=== PATIENT | male | born 1960 | race Caucasian/White ===

== ENCOUNTER 2018-09-07 21:16 | Emergency (ER) | payer SELFPAY ==
[~2018-09-07] VITALS: Ht 157.5 cm; Wt 74.8 kg
[2018-09-07 21:21] VITALS: BP 130/90
[2018-09-07] MEDS ORDERED: ACETAMINOPHEN 325 MG TAB PO ONE (21:30)
--- NOTE | 2018-09-07 21:34 | NUR ---
PT AMBULATED TO ER BED 05
--- NOTE | 2018-09-07 21:40 | NUR ---
FIRST CONTACT PATIENT BIB FRIEND C/O LLE SWELLING/ERYTHEMA +WARM X 3 DAYS. PATIENT DENIES ANY RECENT TRAVEL, NO MEDICAL HX, D/T NO VISITATION TO PCP FOR "YEARS" PATIENT STATES HE SWELLING STARTED 3 DAYS AGO WORSENING TODAY. PATIENT STATES +SENSATION. PATIENT GCS 15, AMBULATORY WITH STEADY GAIT. PATIENT DENIES ANY CP/SOB, NO N/V/D. PATIENT ACCOMPANIED BY FRIEND. UPDATED WITH PLAN OF CARE. DR NOLAN MADE AWARE, NO ACUTE DISTRESS NOTED. WILL CONTINUE TO MONITOR
[2018-09-07 22:17] LABS: BASOPHILS % (AUTO) 0.2 % (0.0-2.0); EOSINOPHILS % (AUTO) 0.4 % (0.0-4.0); HEMATOCRIT 37.2 % (36-52); HEMOGLOBIN 12.5 g/dL (12.0-18.0); LYMPHOCYTES % (AUTO) 9.9 % (20.5-51.1); MEAN CORPUSCULAR HEMOGLOBIN 31 pg (27-31); MEAN CORPUSCULAR HGB CONC 34 g/dL (33-37); MEAN CORPUSCULAR VOLUME 92.4 fL (80-94); MONOCYTES # (AUTO) 1.6 K/uL (0.8-1.0); NEUTROPHILS # (AUTO) 7.5 K/uL (1.8-7.7); PLATELET COUNT (AUTO) 178 K/uL (140-450); RED BLOOD CELL COUNT(AUTO) 4.02 MIL/uL (4.20-6.10); RED CELL DISTRIBUTION WIDTH 13.7 % (11.6-13.7); WHITE BLOOD COUNT (AUTO) 10.1 K/uL (4.8-10.8)
[2018-09-07] MEDS ORDERED: VANCOMYCIN 1,000 MG in DEXTROSE 5% 250 ML IV ONE (22:30)
[2018-09-07] MEDS ORDERED: PIPERACILLIN/TAZOBACTAM 3.375 GM in DEXTROSE 5% 50 ML IV ONE (22:30)
[2018-09-07] MEDS ORDERED: NACL 0.9% 2,000 ML IV ONE (22:30)
[2018-09-07 22:41] LABS: ANION GAP 14.7 (8-16); CARBON DIOXIDE 25.5 mmol/L (21-32); CREATININE 0.9 mg/dL (0.7-1.3); POTASSIUM 3.2 mmol/L (3.5-5.1)
[2018-09-07 22:44] LABS: MONOCYTES % (AUTO) 15.5 % (1.7-9.3)
[2018-09-07] MEDS ORDERED: PIPERACILLIN/TAZOBACTAM 3.375 GM VIAL IV ONE (22:50)
[2018-09-07] MEDS ORDERED: POTASSIUM CHLORIDE 10 MEQ TABER PO ONE (22:50)
[2018-09-07] MEDS ORDERED: VANCOMYCIN 1,000 MG VIAL ONE (22:50)
[2018-09-07 22:55] LABS: ALBUMIN 3.1 g/dL (3.4-5.0); TOTAL BILIRUBIN 0.9 mg/dL (0.0-1.0)
[2018-09-08 00:25] VITALS: BP 123/72
--- NOTE | 2018-09-08 00:25 | NUR ---
Patient discharged with v/s stable. Written and verbal after care instructions given and explained. Patient alert, oriented and verbalized understanding of instructions. Ambulatory with steady gait. All questions addressed prior to discharge. ID band removed. Patient advised to follow up with PMD. Rx of KEFLEX AND BACTRIM given. Patient educated on indication of medication including possible reaction and side effects. Opportunity to ask questions provided and answered.
--- NOTE | 2018-09-11 04:59 | NUR ---
Late entry. Confirmed with RN that 2000ml 0.9 NS IV bolus completed at 0020.
== END 2018-09-08 00:25 | disposition home or self-care (01) ==
LOC: MED 21:16
DX: L03.116 Cellulitis of left lower limb (principal); E87.6 Hypokalemia; F17.200 Nicotine dependence, unspecified, uncomplicated
CPT/HCPCS: 36415; 80053; 83605; 85025; 87040; 93971; 96365; 96367; 99284; J2543; J3370; Q0092

== ENCOUNTER 2018-12-19 10:14 | Inpatient (IN) | payer MEDICAID ==
[~2018-12-19] VITALS: Ht 162.6 cm; Wt 74.8 kg
[2018-12-19 10:24] VITALS: BP 123/87
[2018-12-19] MEDS ORDERED: NACL 0.9% 1,000 ML IV SCH (10:27)
[2018-12-19] MEDS ORDERED: PIPERACILLIN/TAZOBACTAM 3.375 GM in DEXT 5% MINI-BAG PLUS 50 ML IV ONE (10:30)
--- NOTE | 2018-12-19 10:30 | NUR ---
58 YO BIBA FOR C/O L LEG BUG BITE. PT STATES HE HAD BUG BITE X 2 WEEKS AGO. PT DENIES FEVER/CHILLS. L LEG OPEN WOUND PRESENT WITH DRY KERLIX WRAPPED. WOUND 1.5 X1 CM WITH TUNNELING 10 OCLOCK TO 3 OCLOCK, YELLOW/RED DRAINAGE PRESENT; MAGGOTS IN WOUND PRESENT. WOUND CX TAKEN. L FOOT MOTTLED. SENSATION INTACT. SKIN MOTTLED TO LEFT FOOT. NSR 70-80S, +1-2 EDEMA TO BILATERAL LEGS PRESENT. S1 S2. +2 RADIAL PULSES. PULSES TO DOPPLER ON AFFECTED LEG, PALPABLE ON R LEG. BALDEMAR LOCKED IN LOWEST POSITION. HX: DENIES AX: DENIES
[2018-12-19] MEDS ORDERED: PIPERACILLIN/TAZOBACTAM 3.375 GM VIAL IV ONE (10:44)
--- NOTE | 2018-12-19 11:05 | NUR ---
IV R AC 18 G STARTED, LABS DRAWN. BLOOD CULTURE #1 @ 1045, BLOOD CULTURE #2 @ 1100.
--- NOTE | 2018-12-19 11:05 | NUR ---
WOUND CX TAKEN, SENT WITH FRIED CAKE MAKER @ BEDSIDE.
--- NOTE | 2018-12-19 11:23 | NUR ---
Note undone in EDM - 12/19/18 at 1124 by ANTWAN 58 YO BIBA FOR C/O L LEG BUG BITE. PT STATES HE HAD BUG BITE X 2 WEEKS AGO. PT DENIES FEVER/CHILLS. L LEG OPEN WOUND PRESENT WITH DRY KERLIX WRAPPED. WOUND 1.5 X1 CM WITH TUNNELING 10 OCLOCK TO 3 OCLOCK, YELLOW/RED DRAINAGE PRESENT; MAGGOTS IN WOUND PRESENT. WOUND CX TAKEN. L FOOT MOTTLED. SENSATION INTACT. SKIN MOTTLED TO LEFT FOOT. NSR 70-80S, +1-2 EDEMA TO BILATERAL LEGS PRESENT. S1 S2. +2 RADIAL PULSES. PULSES TO DOPPLER ON AFFECTED LEG, PALPABLE ON R LEG. BALDEMAR LOCKED IN LOWEST POSITION. HX: DENIES AX: DENIES
--- NOTE | 2018-12-19 11:25 | NUR ---
PT HAS EYES CLOSED; DENIES PAIN @ THIS TIME. VSS.
[2018-12-19 11:36] LABS: BASOPHILS % (AUTO) 0.5 % (0.0-2.0); EOSINOPHILS # (AUTO) 0.2 K/uL (0-0.4); EOSINOPHILS % (AUTO) 2.8 % (0.0-4.0); HEMATOCRIT 39.1 % (36-52); HEMOGLOBIN 12.8 g/dL (12.0-18.0); LYMPHOCYTES # (AUTO) 1.2 K/uL (2.0-11.5); LYMPHOCYTES % (AUTO) 20.3 % (20.5-51.1); MEAN CORPUSCULAR HEMOGLOBIN 31 pg (27-31); MEAN CORPUSCULAR HGB CONC 33 g/dL (33-37); MEAN CORPUSCULAR VOLUME 93.8 fL (80-94); MONOCYTES # (AUTO) 0.6 K/uL (0.8-1.0); MONOCYTES % (AUTO) 9.6 % (1.7-9.3); NEUTROPHILS # (AUTO) 4.1 K/uL (1.8-7.7); NEUTROPHILS % (AUTO) 66.8 % (42.2-75.2); PLATELET COUNT (AUTO) 247 K/uL (140-450); RED BLOOD CELL COUNT(AUTO) 4.17 MIL/uL (4.20-6.10); RED CELL DISTRIBUTION WIDTH 13.7 % (11.6-13.7); WHITE BLOOD COUNT (AUTO) 6.1 K/uL (4.8-10.8)
[2018-12-19 11:39] LABS: ANION GAP 10.2 (8-16); CARBON DIOXIDE 28.1 mmol/L (21-32); CREATININE 0.7 mg/dL (0.7-1.3); POTASSIUM 3.3 mmol/L (3.5-5.1)
[2018-12-19 11:45] LABS: ALBUMIN 3.2 g/dL (3.4-5.0); TOTAL BILIRUBIN 0.4 mg/dL (0.0-1.0)
[2018-12-19] MEDS ORDERED: ACETAMINOPHEN 325 MG TAB PO PRN (12:00)
[2018-12-19] MEDS ORDERED: LORazepam 2 MG/ML VIAL IM/IVP PRN (12:00)
[2018-12-19] MEDS ORDERED: ONDANSETRON 4 MG/2 ML VIAL IM/IVP PRN (12:00)
[2018-12-19] MEDS ORDERED: DOCUSATE SODIUM 100 MG GELCAP PO PRN (12:00)
[2018-12-19] MEDS ORDERED: HYDROcodone/APAP 5/325 MG 1 TAB TAB PO PRN (12:00)
[2018-12-19] MEDS ORDERED: MORPHINE SULFATE 2 MG/ML SYR IVP PRN (12:00)
--- NOTE | 2018-12-19 12:05 | NUR ---
DR DILL @ BEDSIDE
[2018-12-19] MEDS: NACL 0.9% 1,000 ML IV SCH (13:25)
[2018-12-19] MEDS ORDERED: MAGNESIUM OXIDE 400 MG TAB PO SCH (13:30)
--- NOTE | 2018-12-19 14:00 | NUR ---
PT REQUESTED TO VOID FOR URINE SAMPLE; PT STATED HE DID NOT HAVE THE URGE TO GO. ERMD MADE AWARE.
[2018-12-19 14:20] LABS: AMYLASE 73 U/L (25-115); LIPASE 221 U/L (73-393); MAGNESIUM 1.9 mg/dL (1.8-2.4); PHOSPHORUS 2.5 mg/dL (2.5-4.9); THYROID STIMULATING HORMONE 2.42 uIU/mL (0.34-3.74)
[2018-12-19 14:35] VITALS: BP 137/86
--- NOTE | 2018-12-19 14:35 | NUR ---
PATIENT ARRIVED FROM ER VIA GURNEY. ABLE TO AMBULATE WITH ASSIST TO [facility] BED D/T LLE WOUND. AAOX2, CALM, COOPERATIVE, SKIN COLOR APPROPRIATE TO ETHNICITY, WARM TO TOUCH. HAS LLE WOUND, DRESSING DRY AND INTACT AT THIS TIME. IV SITE INTACT, PATENT, AND ON SALINE LOCK. REVIEWED PLAN OF CARE WITH PATIENT. PATIENT VERBALIZED UNDERSTANDING. ORIENTED PATIENT TO ROOM AND CALL LIGHT. REVIEWED PLAN OF CARE WITH PATIENT. PATIENT VERBALIZED UNDERSTANDING. SAFETY MEASURES IN PLACE, CALL LIGHT WITHIN REACH. WILL CONTINUE TO MONITOR.
[2018-12-19] MEDS ORDERED: POTASSIUM CHLORIDE 10 MEQ TABER PO SCH (15:06)
[2018-12-19] MEDS ORDERED: VANCOMYCIN PER PHARMACY MC PRN (15:15)
--- NOTE | 2018-12-19 16:00 | NUR ---
EDUCATION RESEARCH ANALYST AT BEDSIDE CHANGING LLE WOUND. WILL CONTINUE TO MONITOR.
[2018-12-19] MEDS: VANCOMYCIN 1,000 MG in DEXTROSE 5% 250 ML IV SCH (17:35)
--- NOTE | 2018-12-19 17:47 | NUR ---
PATIENT LYING DOWN IN BED SLEEPING, AROUSABLE BY VOICE. NO DISTRESS NOTED. DENIES ANY PAIN. SCHEDULED MEDICATIONS DUE GIVEN. WILL CONTINUE TO MONITOR.
--- NOTE | 2018-12-19 19:40 | NUR ---
GAVE REPORT TO JOB ANALYST NURSE FOR CONTINUITY OF CARE. PATIENT IN STABLE CONDITION.
--- NOTE | 2018-12-19 19:45 | NUR ---
RECEIVED FROM AM RN IN BED SLEEPING. ABLE TO WAKE UP- WHEN TOUCHED. DROWSY. DX. OF LEFT LEFT CELLULITIS/ABCESS WITH MAGGOTS. DRESSING INTACT. NO BLEEDING. TREATMENT DONE BY RN AM AND SEEN BY SCREEN MAKING TECHNICIAN. NEEDS WILL BE ANTICIPATED AND WILL BE MET. AFEBRILE.
--- NOTE | 2018-12-19 20:58 | NUR ---
PT. SLEEPING BUT WAKES UP EASILY WHEN TOUCHED AND AWAKENED. RE=ORIENTED TO ROOM AND CALL LIGHT. ENCOURAGED TO CALL FOR ANY HELP HE MAY NEED. WITH NS INFUSING WELL. NO INFILTRATION NOTED.
--- NOTE | 2018-12-20 00:06 | NUR ---
PT. SLEEPING. VITAL SIGNS TAKEN WITH CLOSED EYES. NO COMPLAINTS OF PAIN DONE. NO SOB. NO RESTLESSNESS NOTED. DRESSING TO RIGHT NOLAN INTACT AND DRY. CALL LIGHT PLACED BESIDE HIM FOR EASY ACCESS. REMINDED OF CALL LIGHT BESIDE HIM. NODDED HEAD FOR YES.
[2018-12-20 00:21] VITALS: BP_SYST 129; BP_SYST 132; BP_DIAS 84; BP_DIAS 86
--- NOTE | 2018-12-20 01:44 | NUR ---
PT. REFUSED TO HAVE DRESSING CHANGED AND FOOT DIPPED IN WARM WATER WITH BETADINE ORDERED. EXPLAINED TO HIM BY CHARGE NURSE [place] IN [place] AND EXPLAINED IT TO HIM IN AMHARIC TOO. PT. REFUSED TO GET UP TO STAND. INFORMED CHARGE NURSE NAM . AWARE.
--- NOTE | 2018-12-20 03:00 | NUR ---
SLEEPING . REFUSING TO PAR TAKE WITH PERSONAL HYGIENE CARE. OPENS EYES AND CLOSES IT BACK. VITAL SIGNS WITH IN NORMAL LIMITS.
[2018-12-20] MEDS: VANCOMYCIN 1,000 MG in DEXTROSE 5% 250 ML IV SCH (03:51)
[2018-12-20] MEDS: NACL 0.9% 1,000 ML IV SCH ×2 (03:58→12:30)
--- NOTE | 2018-12-20 05:10 | NUR ---
PT. SLEEPING WELL. TURNS SELF . DRESSING TO LEFT LEG INTACT AND NO BLEEDING. PT. REFUSING AM PERSONAL CARE. EXPLAINED REASON. REFUSING MOST OF CARE.
--- NOTE | 2018-12-20 07:01 | NUR ---
MEDICAL STUDENT /PODIATRY IN HERE AND DISCARDED DRESSING . KEPT IT OPEN TO AIR. PT. PER CNAS SAW HIM WALK TO RESTROOM BY HIMSELF WITH IVF POLE . REFUSE TO TALK TO CARE GIVERS. PT. PREFERS TO SLEEP. WILL ENDORSE TO AM RN FOR CONTINUITY OF CARE.
--- NOTE | 2018-12-20 07:20 | NUR ---
RECEIVED REPORT FROM PREANALYTICS TEAM LEAD NURSE. PT IS AROUSABLE TO NAME, ORIENTED X4, NO C/O PAIN AT THIS TIME. IV ON RT AC 18 GA RUNNING IVF PER ORDER. RESPIRATIONS EVEN AND UNLABORED ON RA. ABD SOFT, ACTIVE BS. NOTED DRESSING ON RT FOOT, CLEAN DRY AND INTACT. SAFETY MEASURES IN PLACE, CALL LIGHT WITHIN REACH. REVIEWED POC WITH PT, PT VERBALIZED UNDERSTANDING. Addendum: 12/20/18 at 1135 by Aleena Bahena RN CLARIFICATION LATE ENTRY: 12/20/18 0721 DRESSING ON LT FOOT, CLEAN, DRY AND INTACT. DRYNESS NOTED TO BILATERAL FEET.
--- NOTE | 2018-12-20 07:25 | NUR ---
RECEIVED UPDATE FROM BURN OUT SCARFING OPERATOR, PER PHYSICIAN DRESSING CHANGE DONE TODAY, NEXT DRESSING CHANGED TO BE DONE TOMORROW AM.
[2018-12-20 07:50] LABS: BASOPHILS % (AUTO) 0.2 % (0.0-2.0); EOSINOPHILS # (AUTO) 0.1 K/uL (0-0.4); EOSINOPHILS % (AUTO) 0.9 % (0.0-4.0); HEMATOCRIT 41.2 % (36-52); HEMOGLOBIN 13.7 g/dL (12.0-18.0); LYMPHOCYTES % (AUTO) 12.6 % (20.5-51.1); MEAN CORPUSCULAR HEMOGLOBIN 31 pg (27-31); MEAN CORPUSCULAR HGB CONC 33 g/dL (33-37); MEAN CORPUSCULAR VOLUME 93.4 fL (80-94); MONOCYTES # (AUTO) 0.6 K/uL (0.8-1.0); MONOCYTES % (AUTO) 7.6 % (1.7-9.3); NEUTROPHILS % (AUTO) 78.7 % (42.2-75.2); PLATELET COUNT (AUTO) 231 K/uL (140-450); RED BLOOD CELL COUNT(AUTO) 4.41 MIL/uL (4.20-6.10); RED CELL DISTRIBUTION WIDTH 13.8 % (11.6-13.7); WHITE BLOOD COUNT (AUTO) 7.6 K/uL (4.8-10.8)
[2018-12-20 08:00] VITALS: BP 133/79
--- NOTE | 2018-12-20 08:20 | NUR ---
PATIENT HAS BEEN SCREENED AND CATEGORIZED HIGH NUTRITION RISK. PATIENT WILL BE SEEN WITHIN 1-2 DAYS OF ADMISSION. 12/20/[address]
[2018-12-20] MEDS: LACTOBACILLUS RHAMNOSUS GG 1 EACH CAP PO SCH (09:37)
--- NOTE | 2018-12-20 09:39 | NUR ---
ADMINISTERED LACTOBACILLUS AND HEPARIN PER ORDER, PT VERBALIZES UNDERSTANDING OF INDICATIONS AND POTENTIAL SIDE EFFECTS. PT IS AWARE TO NOTIFY NURSE WHEN HE VOIDS.
--- NOTE | 2018-12-20 10:00 | NUR ---
COLLECTED URINE SPECIMEN AND GIVEN TO LAB.
[2018-12-20 10:08] LABS: CARBON DIOXIDE 27.5 mmol/L (21-32); CREATININE 0.8 mg/dL (0.7-1.3); POTASSIUM 3.5 mmol/L (3.5-5.1)
[2018-12-20] MEDS ORDERED: HYDROmorphone PFS 2 MG/ML SYR IVP PRN (10:20)
[2018-12-20 10:29] LABS: CHOL/HDL RATIO 2.4 (1-4.5); MAGNESIUM 1.9 mg/dL (1.8-2.4); PHOSPHORUS 2.1 mg/dL (2.5-4.9)
--- NOTE | 2018-12-20 10:53 | NUR ---
PT. EXAMED AND TREATED BY DR. WILLIAMSON TO LEFT LOWER LEG. SPOKE TO PRIMARY RN TODAY'S TREATMENT DONE BY DR. WILLIAMSON AND WOULD LIKE TO HAVE DRESSING CHANGE DAILY. SPOKE TO DR. DILL WOUND CARE ORDER DISCUSSED AND OKAY TO HAVE PRIMARY RN TO DO DRESSING CHANGE STARTING TOMORROW. PRIMARY RN NOTIFIED.PER DR. KABA ORDER: Please change dressings daily. Patient previously had maggots in wound and surrounding cellulitis, improving. Please flush with saline and betadine, and dress with gauze, kerlix, and oriana wrap on left leg.
[2018-12-20 11:31] LABS: BARBITURATE, URINE NEG. ng/ml (NEG <=200); BENZODIAZEPINE, URINE NEG. ng/mL (NEG <=200); CANNABINOID, URINE NEG. ng/mL (NEG <=50); COCAINE, URINE NEG. ng/mL (NEG <=300); OPIATE, URINE NEG. ng/mL (NEG <=2000); PHENCYCLIDINE SCREEN,URINE NEG. ng/mL (NEG <=25)
--- NOTE | 2018-12-20 11:35 | NUR ---
PT RESTING IN BED IN SUPINE POSITION. RESPIRATIONS EVEN AND UNLABORED ON RA.
[2018-12-20] MEDS ORDERED: SODIUM PHOS / POTASSIUM PHOS 1 PKT PDR PO SCH (11:40)
--- NOTE | 2018-12-20 12:00 | NUR ---
PT GIVEN CLEAN GOWN, PT REFUSED FOR BED LINENS TO BE CHANGED AT THIS TIME.
--- NOTE | 2018-12-20 13:00 | NUR ---
PT'S DRESSING ON LT FOOT CLEAN, DRY AND INTACT. PT HAS NO C/O PAIN AT THIS TIME.
--- NOTE | 2018-12-20 13:10 | NUR ---
12/20/18 RD INITIAL ASSESSMENT COMPLETED PLEASE REFER TO NUTRITION ASSESSMENT UNDER CARE ACTIVITY FOR ESTIMATED NUTRITIONAL NEEDS. 1. CONTINUE REGULAR DIET TOLERATED 2. RECOMMEND VITAMIN C 200 MG/DAY 3. RD TO FOLLOW-UP 3-5 DAYS, MODERATE RISK CATRINA ALEJANDRA, RD
[2018-12-20 14:43] LABS: APPEARANCE,URINE CLEAR (CLEAR); BILIRUBIN,URINE NEGATIVE (NEGATIVE); BLOOD, URINE TRACE-I (NEGATIVE); COLOR,URINE YELLOW (YELLOW); LEUKOCYTE ESTERASE ,URINE NEGATIVE (NEGATIVE); NITRITE, URINE NEGATIVE (NEGATIVE); UGLUCOSE NEGATIVE (NEGATIVE)
[2018-12-20 14:46] LABS: RBC,URINE 0-5 /HPF (0-5); WBC,URINE NONE SEEN /HPF (0-5); YEAST,URINE None Seen /HPF (None Seen)
--- NOTE | 2018-12-20 15:20 | NUR ---
PT RESTING IN BED, RESPIRATIONS EVEN AND UNLABORED ON RA.
[2018-12-20 16:00] VITALS: BP 128/86
--- NOTE | 2018-12-20 16:15 | NUR ---
PT GIVEN COOLING MEASURES FOR ORAL TEMP 99.0, COOL WASHCLOTH TO FOREHEAD AND ICE PACKS TO UNDERARMS. WILL REASSESS TEMPERATURE AT A LATER TIME.
[2018-12-20] MEDS ORDERED: VANCOMYCIN 1,250 MG in DEXTROSE 5% 250 ML IV SCH (16:30)
--- NOTE | 2018-12-20 17:15 | NUR ---
ORAL TEMPERATURE AT 98.4, CONTINUED TO GIVE COOLING MEASURES AT THIS TIME.
--- NOTE | 2018-12-20 18:30 | NUR ---
GIVEN SANDWICH IN ADDITION TO DINNER. PT RESTING IN SUPINE POSITION. NO SIGNS OF DISTRESS NOTED.
--- NOTE | 2018-12-20 19:20 | NUR ---
ENDORSED PT TO COPPING MACHINE OPERATOR NURSE. PT HAS NO SIGNS OF DISTRESS AT THIS TIME.
--- NOTE | 2018-12-20 19:30 | NUR ---
PT. SLEEPING. WOKE UP WHEN TOUCHED. REFUSED TO TALK. WENT BACK TO SLEEP. CALL LIGHT AT BEDSIDE AND BED ALARM ON. DRESSING TO LEFT NOLAN IN PLACE AND DRY. AFEBRILE. IVF INTACT AND INFUSING WELL. NO S/S OF INFILTRATION.
--- NOTE | 2018-12-20 22:10 | NUR ---
PT. SLEEPING. KEPT COMFORTABLE. ABLE TO NOD HEAD WHEN ASKED SOMETHING. CALL LIGHT WITH IN REACH. BED ALARM ON.
[2018-12-21 00:04] VITALS: BP_SYST 126; BP_SYST 148; BP_DIAS 66; BP_DIAS 84
--- NOTE | 2018-12-21 00:49 | NUR ---
SLEEPING. REFUSED TO BE DISTURBED. VITAL SIGN TAKEN BUT TRIED TO WAG MY HAND AWAY. WENT BACK TO SLEEP AFTER.
[2018-12-21] MEDS: VANCOMYCIN 1,250 MG in DEXTROSE 5% 250 ML IV SCH ×2 (04:34→16:49)
--- NOTE | 2018-12-21 04:34 | NUR ---
PT. WOKE UP AT THIS TIME. WET HIMSELF AND BEDDING WITH URINE. CHANGED BY CLASSIFIED AD TAKER. PT. ABLE TO UNDERSTAND AND VERBALIZE SIMPLE NEEDS IN BHUTANESE. ENCOURAGED TO GO BACKK TO SLEEP RT STILL SLEEP TIME. WENT BACK TO SLEEP AND BACK TO BED WITH OUT PROBLEM.
--- NOTE | 2018-12-21 07:23 | NUR ---
PT. RESPONSIVE VERBALLY AND AND MORE AWAKE. SPEAKS SOANISH . ENDORSED TO AM RN FOR CONTINUITY OF CARE. NO DOLOR COMPLAINT THIS SHIFT.
--- NOTE | 2018-12-21 07:25 | NUR ---
RECEIVED BEDSIDE REPORT FROM PIT CRANE OPERATOR NURSE FOR CONTINUITY OF CARE. PATIENT IS RESTING ON BED AT THIS TIME. AROUSABLE TO VOICE. PATIENT IS AAOX4, SPEAK KYRGYZ AND ABLE TO SPEAK SOME SLOVENIAN. RESPIRATION EVEN AND UNLABORED ON RA. NO SIGNS OF DISTRESS NOTED. IV PATENT AND INTACT, INFUSING PER MD ORDER. PATIENT IS CONTINENT AND AMBULATE WITH ASSIST. CELLULITIS ON R LEG NOTED, CS ASSOCIATE,OTHERWISE SKIN INTACT AND CLEAN. DISCUSSED PLAN OF CARE WITH PATIENT AND PATIENT VERBALIZED OK. SAFETY MEASURES IN PLACE. BED IN LOW POSITION AND CALL LIGHT WITHIN REACH. FALL RISK PROTOCOL IN PLACE AND BED ALARM ACTIVATED. INSTRUCTED PATIENT TO USE THE CALL LIGHT FOR ANY ASSISTANCE AND PATIENT WAS AWARE.
[2018-12-21 08:00] VITALS: BP 131/58
[2018-12-21] MEDS: LACTOBACILLUS RHAMNOSUS GG 1 EACH CAP PO SCH (09:13)
--- NOTE | 2018-12-21 09:14 | NUR ---
ADMINISTERED MEDS PER MD ORDER, PATIENT TOLERATED WELL. MEDS EDUCATION PROVIDED TO PATIENT AND PATIETN VERBALIZED UNDERSTANDING. PATIENT IS AWAKE AND EATING OATMEAL AT THIS TIME. NO SIGNS OF DISTRESS NOTED. SAFETY MEASURES IN PLACE. BED IN LOW POSITION AND CALL LIGHT WITHIN REACH. BED ALARM ACTIVATED. INSTRUCTED PATIENT TO USE THE CALL LIGHT FOR ANY ASSISTANCE AND PATIENT WAS AWARE.
--- NOTE | 2018-12-21 11:32 | NUR ---
PATIENT IS RESTING ON BED AT THIS TIME. DENIED PAIN, DIZZINESS AND SOB. NO SIGNS OF DISTRESS NOTED. SAFETY MEASURES IN PLACE. BED IN LOW POSITION AND CALL LIGHT WITHIN REACH. INSTRUCTED PATIENT TO USE THE CALL LIGHT FOR ANY ASSISTANCE AND PATIENT WAS AWARE. BED ALARM ACTIVATED.
[2018-12-21] MEDS ORDERED: SODIUM PHOS / POTASSIUM PHOS 1 PKT PDR PO SCH (12:45)
--- NOTE | 2018-12-21 12:58 | NUR ---
ADMINISTERED MED PER MD ORDER, PATIENT TOLERATED WELL. MED EDUCATION PROVIDED TO PATIENT AND PATIENT VERBALIZED UNDERSTANDING. PATIENT IS EATING LUNCH AT THIS TIME. DENIED PAIN, SOB AND DIZZINESS. NO SIGNS OF DISTRESS NOTED. SAFETY MEASURES IN PLACE. BED ALARM ACTIVATED.
[2018-12-21] MEDS: GAUZE TP SCH (13:03)
--- NOTE | 2018-12-21 13:47 | NUR ---
PERFORMED WOUND CARE, CLEANSED WITH SALINE AND BETADINE, USED KERLIX TO SECURE AND WRAP AROUND LEFT LEG. PATIENT TOLERATED WELL. DENIED PAIN. WOUND CARE EDUCATION PROVIDED TO PATIENT AND PATIENT VERBALIZED OK. PATIENT IS RESTING ON BED AT THIS TIME. NO SIGNS OF DISTRESS NOTED. SAFETY MEASURES IN PLACE. BED IN LOW POSITION AND CALL LIGHT WITHIN REACH. BED ALARM ACTIVATED. INSTRUCTED PATIENT TO USE THE CALL LIGHT FOR ANY ASSISTANCE AND PATIENT WAS AWARE.
[2018-12-21] MEDS: NACL 0.9% 1,000 ML IV SCH (14:07)
[2018-12-21 16:00] VITALS: BP 119/79
--- NOTE | 2018-12-21 16:49 | NUR ---
ADMINISTERED MED VIA IVPB PER MD ORDER, MED EDUCATION PROVIDED TO PATIENT AND PATIENT VERBALIZED UNDERSTANDING. PATIENT AWAKE AND WATCHING TV ON BED AT THIS TIME. NO SIGNS OF DISTRESS NOTES. SAFETY MEASURES IN PLACE. BED IN LOW POSITION AND CALL LIGHT WITHIN REACH. FALL RISK PROTOCOL IN PLACE AND BED ALARM ACTIVATED. INSTRUCTED PATIENT TO USE THE CALL LIGHT FOR ANY ASSISTANCE AND PATIENT WAS AWARE.
--- NOTE | 2018-12-21 19:16 | NUR ---
ENDORSED PATIENT AT BEDSIDE TO POLICY ISSUE CLERK NURSE FOR CONTINUITY OF CARE. PATIENT AWAKE AND RESTING ON BED. NO SIGNS OF DISTRESS NOTED. SAFETY MEASURES IN PLACE. BED IN LOW POSITION AND CALL LIGHT WITHIN REACH. FALL RISK PROTOCOL IN PLACE AND BED ALARM ACTIVATED.
--- NOTE | 2018-12-21 19:18 | NUR ---
REPORT RECEIVED FROM AM NURSE AT BEDSIDE. PT IN STABLE CONDITION. AAOX4. INTRODUCED SELF TO PT. BOARD UPDATED. NO COMPLAINTS OF PAIN. NO SOB. AFEBRILE. PT IS ON BED REST BUT IS AMBULATORY. IV SITE R AC 18G RUNNING NS@60ML/HR PATENT AND INTACT. SKIN WARM, DRY, AND NOT INTACT DUE TO WOUNDS OF THE LOWER EXTREMITIES. BED LOCKED IN LOW POSITION. CALL SCHUSTER WITHIN REACH. SAFETY PRECAUTION IN PLACE. ALL NEEDS MET AT THIS TIME.
--- NOTE | 2018-12-21 20:45 | NUR ---
HEPARIN GIVEN SUBQ. PT TOLERATED WELL.
--- NOTE | 2018-12-21 21:45 | NUR ---
NEW IV SITE INSERTED R FA 20G. 1 ATTEMPT. OTHER IV REMOVED. CANNULA INTACT.
--- NOTE | 2018-12-21 23:45 | NUR ---
PT SLEEPING COMFORTABLY BUT AROUSABLE. NO S/S OF DISTRESS NOTED. NO COMPLAINTS OF PAIN. NO SOB. AFEBRILE. WILL CONTINUE TO MONITOR.
[2018-12-22] VITALS: BP 131/80
--- NOTE | 2018-12-22 00:45 | NUR ---
WOUND CARE DONE.
[2018-12-22] MEDS: VANCOMYCIN 1,250 MG in DEXTROSE 5% 250 ML IV SCH ×2 (03:30→14:18)
--- NOTE | 2018-12-22 03:30 | NUR ---
MAGDALENA LUNDY AND RUNNING. PT TOLERATING WELL.
[2018-12-22] MEDS: NACL 0.9% 1,000 ML IV SCH (04:05)
[2018-12-22 06:05] LABS: BASOPHILS % (AUTO) 0.3 % (0.0-2.0); EOSINOPHILS # (AUTO) 0.1 K/uL (0-0.4); EOSINOPHILS % (AUTO) 1.6 % (0.0-4.0); HEMATOCRIT 37.2 % (36-52); HEMOGLOBIN 12.5 g/dL (12.0-18.0); LYMPHOCYTES # (AUTO) 1.3 K/uL (2.0-11.5); MEAN CORPUSCULAR HEMOGLOBIN 31 pg (27-31); MEAN CORPUSCULAR HGB CONC 34 g/dL (33-37); MEAN CORPUSCULAR VOLUME 93.3 fL (80-94); MONOCYTES # (AUTO) 0.9 K/uL (0.8-1.0); MONOCYTES % (AUTO) 11.9 % (1.7-9.3); NEUTROPHILS # (AUTO) 5.1 K/uL (1.8-7.7); NEUTROPHILS % (AUTO) 68.2 % (42.2-75.2); PLATELET COUNT (AUTO) 236 K/uL (140-450); RED BLOOD CELL COUNT(AUTO) 3.99 MIL/uL (4.20-6.10); RED CELL DISTRIBUTION WIDTH 13.6 % (11.6-13.7); WHITE BLOOD COUNT (AUTO) 7.5 K/uL (4.8-10.8)
--- NOTE | 2018-12-22 06:20 | NUR ---
PT SLEEPING COMFORTABLY BUT AROUSABLE. PT IN STABLE CONDITION.
[2018-12-22 06:44] LABS: MAGNESIUM 1.7 mg/dL (1.8-2.4); PHOSPHORUS 3.3 mg/dL (2.5-4.9)
[2018-12-22 06:57] LABS: ANION GAP 12.2 (8-16); CARBON DIOXIDE 27.1 mmol/L (21-32); CREATININE 0.7 mg/dL (0.7-1.3); POTASSIUM 3.3 mmol/L (3.5-5.1)
--- NOTE | 2018-12-22 07:15 | NUR ---
RECEIVED BEDSIDE REPORT FROM DATA PROCESSING AUDITOR NURSE FOR CONTINUITY OF CARE. PATIENT IS RESTING ON BED AT THIS TIME. AROUSABLE TO VOICE. PATIENT IS AAOX4, SPEAK ARMENIAN AND ABLE TO SPEAK SOME MALAY. RESPIRATION EVEN AND UNLABORED ON RA. NO SIGNS OF DISTRESS NOTED. IV PATENT AND INTACT, INFUSING PER MD ORDER. PATIENT IS CONTINENT AND AMBULATE WITH ASSIST. CELLULITIS ON R LEG NOTED, DRESSING CLEAN AND DRY,OTHERWISE SKIN INTACT AND CLEAN. DISCUSSED PLAN OF CARE WITH PATIENT AND PATIENT VERBALIZED OK. SAFETY MEASURES IN PLACE. BED IN LOW POSITION AND CALL LIGHT WITHIN REACH. FALL RISK PROTOCOL IN PLACE AND BED ALARM ACTIVATED. INSTRUCTED PATIENT TO USE THE CALL LIGHT FOR ANY ASSISTANCE AND PATIENT WAS AWARE.
[2018-12-22 08:00] VITALS: BP 126/78
[2018-12-22] MEDS ORDERED: POTASSIUM CHLORIDE 10 MEQ TABER PO SCH (08:00)
[2018-12-22] MEDS ORDERED: MAG SULF 2000 MG/WATER PREMIX 50 ML IV SCH (08:00)
[2018-12-22] MEDS: LACTOBACILLUS RHAMNOSUS GG 1 EACH CAP PO SCH (08:29)
--- NOTE | 2018-12-22 08:29 | NUR ---
ADMINISTERED MEDS PER MD ORDER, PATIENT TOLERATED WELL. MEDS EDUCATION PROVIDED TO PATIENT AND PATIENT VERBALIZED UNDERSTANDING. ADMINISTERED MG SULFATE AND K DUR FOR LOW AM LAB MG 1.7L AND POTASSIUM 3.3, MEDS EDUCATION PROVIDED TO PATIENT AND PATIENT WAS AWARE. PATIENT IS AWAKE AND RESTING ON BED AT THIS TIME. NO SIGNS OF DISTRESS NOTED. SAFETY MEASURES IN PLACE. BED IN LOW POSITION AND CALL LIGHT WITHIN REACH. BED ALARM ACTIVATED. INSTRUCTED PATIENT TO USE THE CALL LIGHT FOR ANY ASSISTANCE AND PATIENT WAS AWARE.
--- NOTE | 2018-12-22 09:50 | NUR ---
PATIENT IS RESTING ON BED AT THIS TIME. DENIED PAIN, SOB, AND DIZZINESS. NO SIGNS OF DISTRESS NOTED. SAFETY MEASURES IN PLACE. BED IN LOW POSITION AND CALL LIGHT WITHIN REACH. FALL RISK PROTOCOL IN PLACE AND BED ALARM ACTIVATED. INSTRUCTED PATIENT TO USE THE CALL LIGHT FOR ANY ASSISTANCE AND PATIENT WAS AWARE.
[2018-12-22] MEDS ORDERED: SULF-59 PO (10:19)
[2018-12-22] MEDS ORDERED: LACT10CA PO (10:19)
--- NOTE | 2018-12-22 10:40 | NUR ---
INFORMED PATIENT THAT HE WILL BE DISCHARGE FROM THE HOSPITAL TODAY. PER PATIENT, HE WILL CALL HIS FRIEND AIDEN TO PICK HIM UP AND WILL LET ME KNOW THE TIME. PATIENT ALSO SAID "I AM NOT HOMELESS, I STAY WITH AIDEN." PATIENT IS RESTING ON BED AT THIS TIME. NO SIGNS OF DISTRESS NOTED. SAFETY MEASURES IN PLACE. BED IN LOW POSITION AND CALL LIGHT WITHIN REACH. BED ALARM ACTIVATED.
--- NOTE | 2018-12-22 11:23 | NUR ---
PATIENT STATED THAT HIS FRIEND AIDEN WILL PICK HIM UP AT 4 PM. ALSO SPOKE WITH AIDEN [phone] OVER THE PHONE TO CONFIRMED THAT SHE IS AWARE PATIENT IS GETTING DISCHARGE AND SHE SAID SHE IS AVAILABLE TO PAINTER HELPER SIGN AROUND 4PM. PATIENT IS RESTING ON BED AT THIS TIME. DENIED PAIN, SOB, AND DIZZINESS. NO SIGNS OF DISTRESS NOTED. SAFETY MEASURES IN PLACE. BED IN LOW POSITION AND CALL LIGHT WITHIN REACH. FALL RISK PROTOCOL IN PLACE AND BED ALARM ACTIVATED. INSTRUCTED PATIENT TO USE THE CALL LIGHT FOR ANY ASSISTANCE AND PATIENT WAS AWARE.
--- NOTE | 2018-12-22 13:20 | NUR ---
PERFORMED WOUND CARE, CLEANSED WITH SALINE AND BETADINE, USED KERLIX TO SECURE AND WRAP AROUND LEFT LEG. PATIENT TOLERATED WELL. WOUND PICTURED TAKEN. DENIED PAIN. WOUND CARE EDUCATION PROVIDED TO PATIENT AND PATIENT VERBALIZED OK. PATIENT IS RESTING ON BED AT THIS TIME. AWAITING FOR AIDEN TO ARRIVE HOSPITAL FOR DISCHARGE. NO SIGNS OF DISTRESS NOTED. SAFETY MEASURES IN PLACE. BED IN LOW POSITION AND CALL LIGHT WITHIN REACH. BED ALARM ACTIVATED. INSTRUCTED PATIENT TO USE THE CALL LIGHT FOR ANY ASSISTANCE AND PATIENT WAS AWARE.
[2018-12-22] MEDS: GAUZE TP SCH (13:24)
--- NOTE | 2018-12-22 14:18 | NUR ---
ADMINISTERED VANCOMYCIN VIA IVPB PER MD ORDER, DUE TO PATIENT IS GOING TO DISCHARGE AROUND 4 PM, ADMINISTER VANCOMYCIN AT THIS TIME AND CONFIRMED WITH PHARMACIST. MED EDUCATION PROVIDED TO PATIENT AND PATIENT WAS AWARE. PATIENT IS RESTING ON BED AT THIS TIME. NO SIGNS OF DISTRESS NOTED. SAFETY MEASURES IN PLACE. BED IN LOW POSITION AND CALL LIGHT WITHIN REACH. FALL RISK PROTOCOL IN PLACE AND BED ALARM ACTIVATED. INSTRUCTED PATIENT TO USE THE CALL LIGHT FOR ANY ASSISTANCE AND PATIENT WAS AWARE.
--- NOTE | 2018-12-22 15:34 | NUR ---
FAXED ALL THE PAPERWORK TO [facility] OUT PATIENT REFERRAL [facility] [phone]
--- NOTE | 2018-12-22 15:50 | NUR ---
PATIENT IS RESTING ON BED AT THIS TIME. DENIES PAIN, DIZZINESS AND SOB. NO SIGNS OF DISTRESS NOTED. SAFETY MEASURES IN PLACE. BED IN LOW POSITION AND CALL LIGHT WITHIN REACH. FALL RISK PROTOCOL IN PLACE AND BED ALARM ACTIVATED.
[2018-12-22 16:00] VITALS: BP 115/68
--- NOTE | 2018-12-22 16:30 | NUR ---
PATIENT IS AWAKE AND RESTING ON BED AT THIS TIME. DENIES PAIN, DIZZINESS AND SOB. NO SIGNS OF DISTRESS NOTED. AWAITING FOR FRIEND AIDEN TO ARRIVE FOR DC. SAFETY MEASURES IN PLACE. BED IN LOW POSITION AND CALL LIGHT WITHIN REACH. FALL RISK PROTOCOL IN PLACE AND BED ALARM ACTIVATED.
--- NOTE | 2018-12-22 16:50 | NUR ---
RECEIVED A CALL FROM PATIENT'S FRIEND AIDEN SAID THAT SHE IS ON HER WAY TO THE HOSPITAL AND SHE MIGHT BE ARRIVE AROUND 5:30 PM. INFORMED PATIENT ON ABOVE INFORMATION, AND PATIENT WAS AWARE. PATIENT IS RESTING ON BED AT THIS TIME. NO SIGNS OF DISTRESS NOTED. SAFETY MEASURES IN PLACE. BED IN LOW POSITION AND CALL LIGHT WITHIN REACH. FALL RISK PROTOCOL IN PLACE AND BED ALARM ACTIVATED.
--- NOTE | 2018-12-22 17:40 | NUR ---
AIDEN ARRIVED TO PATIENT'S ROOM AND PATIENT IS CHANGING INTO HIS OWN CLOTHES AT THIS TIME. NO SIGNS OF DISTRESS NOTED. SAFETY MEASURES IN PLACE.
--- NOTE | 2018-12-22 17:50 | NUR ---
DISCHARGE INSTRUCTION PROVIDED TO PATIENT AT BEDSIDE. EDUCATED PATIENT ON MD FOLLOW UP, SEEK MEDICAL HELP IN CASE OF MEDICAL EMERGENCY, WOUND CARE, MEDICATION MANAGEMENT AND SIDE EFFECTS, DISEASE MANAGEMENT, AND DIET. ANSWERED ALL PATIENT'S QUESTIONS AND PATIENT VERBALIZED UNDERSTANDING. EDUCATED PATIENT ON HOW TO DO WOUND CARE ON HIS LEG AND PROVIDED WOUND CARE SUPPLIES, PATIENT VERBALIZED UNDERSTANDING. WOUND CARE PICTURES TAKEN. PATIENT REFUSED FLU AND PNA VACCINES, VACCINATION EDUCATION PROVIDED TO PATIENT AND PATIENT SAID "NO, IT'S OK. I DON'T WANT THEM." PROVIDED PATIENT WITH HOMELESS PACKET: [facility], [facility], [facility], [facility] INFORMATION, AND [facility] INFORMATION, PATIENT VERBALIZED UNDERSTANDING. REMOVED IV, CANNULA INTACT AND NO BLEEDING AT IV SITE. REMOVED ALL ARM BANDS. PATIENT'S FRIEND AIDEN CHECKED ALL THE CABINET AND TOOK ALL PATIENT'S BELONGING. PATIENT WAS AWARE THAT HIS PRESCRIPTION HAS SENT TO HIS PREFERRED PHARMACY AND FOLLOW UP APPOINTMENTS HAS BEEN SCHEDULED. PATIENT CHANGED INTO HIS OWN CLOTHES. LOCKSTITCH BINDER WHEELCHAIR PATIENT TO THE FRONT LOBBY. PATIENT IS GOING TO DISCHARGE ACCOMPANIED BY HIS FRIEND AIDEN. PATIENT IS IN STABLE CONDITION.
== END 2018-12-22 17:50 | disposition home or self-care (01) | DRG 383 ==
LOC: MED 10:14 → MTU 11:56
PROVIDERS: ADMIT General Practice; ATTEND General Practice
DX: L03.116 Cellulitis of left lower limb (principal); G93.40 Encephalopathy, unspecified; E44.1 Mild protein-calorie malnutrition; E83.39 Other disorders of phosphorus metabolism; E87.6 Hypokalemia; E66.3 Overweight; B87.9 Myiasis, unspecified; F15.10 Other stimulant abuse, uncomplicated; F17.210 Nicotine dependence, cigarettes, uncomplicated; Z68.28 Body mass index [BMI] 28.0-28.9, adult
CPT/HCPCS: 36415; 70450; 71045; 73590; 76881; 80048; 80053; 80202; 80305; 81001; 82140; 82150; 83036; 83605; 83690; 83735; 84100; 84443; 84484; 85025; 85610; 85730; 87040; 87070; 87081; 87086; 87186; 93005; 93925; 93970; 96361; 96374; 99285; G0482; J1644; J2543; J3370; J3475; J7030; J7060; Q0092

== ENCOUNTER 2019-02-27 20:29 | Emergency (ER) | payer MEDICAID ==
[~2019-02-27] VITALS: Ht 162.6 cm; Wt 72.6 kg
[~2019-02-27 20:29] MED LIST: LACT10CA PO; SULF-59 PO
[2019-02-27 21:07] VITALS: BP 111/71
[2019-02-27 22:07] LABS: APPEARANCE,URINE BLOODY (CLEAR); BLOOD, URINE 4+ (NEGATIVE); COLOR,URINE RED (YELLOW); UGLUCOSE NEGATIVE (NEGATIVE)
[2019-02-27 22:08] LABS: BILIRUBIN,URINE NEGATIVE (NEGATIVE); LEUKOCYTE ESTERASE ,URINE TRACE (NEGATIVE); NITRITE, URINE NEGATIVE (NEGATIVE)
[2019-02-27 22:09] LABS: RBC,URINE TOO NUMEROUS TO COUN /HPF (0-5); WBC,URINE 0-5 /HPF (0-5)
[2019-02-27 23:00] VITALS: BP 111/71
== END 2019-02-27 23:00 | disposition home or self-care (01) ==
LOC: MED 20:29
DX: R31.9 Hematuria, unspecified (principal); Z79.2 Long term (current) use of antibiotics; Z79.899 Other long term (current) drug therapy
CPT/HCPCS: 81001; 99283